=== PATIENT | male | born 1935 | race Caucasian/White ===

== ENCOUNTER 2016-12-31 08:27 | Inpatient (IN) | payer OTHER ==
[~2016-12-31] VITALS: Ht 185.4 cm; Wt 103.4 kg
[~2016-12-31 08:27] MED LIST: ASPI-515 PO; ASPI-621 PO; ATOR-2 PO; CARV12.52 PO; CLOP75TA PO; CLOP75TA52 PO; ENAL20TA PO; GABA600T2 PO; GABA800T2 PO; LEVO750T26 PO; LISI-167 PO; LOVA40TA2 PO; METF10002 PO; NITR0.4T28 PO; TICA90TA PO; TRAM50TA2 PO; WARF6TAB7 PO; WARF7.5T6 PO
[2016-12-31] MEDS ORDERED: SODIUM CHLORIDE FLUSH 10ML SYR IVF ONE (09:00)
[2016-12-31 09:33] LABS: HEMATOCRIT 44.7 % (39.2-51.8); HEMOGLOBIN 14.8 g/dL (13.7-18.0); WHITE BLOOD COUNT 12.6 x10^3/uL (3.4-10)
[2016-12-31 09:46] LABS: ASPARTATE AMINO TRANSFERASE 22 U/L (15-37); BLOOD UREA NITROGEN 19 mg/dL (7-18)
[2016-12-31 09:52] LABS: IS PT STATUS REG ER OR PRE ER? YES
[2016-12-31 10:15] LABS: PATH.CAST-FLAG NOT PRESENT; SPERM-FLAG NOT PRESENT; SRC-FLAG NOT PRESENT; XTAL-FLAG NOT PRESENT; YLC-FLAG NOT PRESENT
[2016-12-31] MEDS ORDERED: OMNIPAQUE 350 MG/ML, 100ML BOTTLE ONE (10:33)
[2016-12-31] MEDS ORDERED: RIVA20TA PO (12:04)
[2016-12-31] MEDS ORDERED: SODIUM CHLORIDE 0.9% 1,000 ML IV SCH (12:31)
[2016-12-31] MEDS ORDERED: DOCUSATE 100 MG CAPSULE PO PRN (13:00)
[2016-12-31] MEDS ORDERED: KETOROLAC 30 MG/1 ML IVPush PRN (13:00)
[2016-12-31] MEDS ORDERED: OXYcodone IR 5MG TABLET PO PRN (13:00)
[2016-12-31] MEDS ORDERED: BISACODYL 10 MG SUPP PR PRN (13:00)
[2016-12-31] MEDS ORDERED: ONDANSETRON 2MG/ML, 2ML IVPush PRN (13:00)
[2016-12-31] MEDS ORDERED: POLYETHYLENE GLYCOL 17 GM PACKET PO PRN (13:00)
[2016-12-31] MEDS ORDERED: ONDANSETRON ODT 4 MG PO PRN (13:00)
[2016-12-31] MEDS: INSULIN ASPART 100 UNITS/ML, PEN SQ-INSULIN SCH ×3 (13:00→21:04)
[2016-12-31] MEDS ORDERED: HYDROmorphone 1 MG/ML, 1ML IV PRN (13:00)
[2016-12-31] MEDS ORDERED: NITROGLYCERIN 0.4 MG BOTTLE (25 TABS) SL PRN (13:00)
[2016-12-31 13:06] VITALS: BP 156/93
[2016-12-31 14:19] VITALS: BP 156/93
[2016-12-31] MEDS: GUAIFENESIN 200 MG TABLET PO SCH ×2 (15:15→21:04)
[2016-12-31] MEDS: GABAPENTIN 400 MG CAPSULE PO SCH ×2 (15:15→21:04)
[2016-12-31] MEDS: METHOCARBAMOL 500 MG TABLET PO SCH ×2 (15:16→21:04)
[2016-12-31] MEDS: CETIRIZINE 10 MG TABLET PO SCH (15:39)
[2016-12-31] MEDS ORDERED: MAGNESIUM SULFATE PMX 4GM/100M 100 ML IV ONE (16:00)
[2016-12-31] MEDS ORDERED: GADOBUTROL 10 MMOL/10 ML PFS ONE (17:55)
[2016-12-31 18:55] VITALS: BP 130/75
[2016-12-31] MEDS: FLUTICASONE NASAL SPRAY 16GM NAS SCH (21:00)
[2016-12-31] MEDS: SODIUM CHLORIDE NASAL SPRAY 45ML BOTTLE NAS SCH (21:00)
[2016-12-31] MEDS ORDERED: ATORVASTATIN 80 MG TABLET PO SCH (21:00)
[2016-12-31] MEDS: CARVEDILOL 6.25 MG TABLET PO SCH (21:04)
[2017-01-01 02:45] VITALS: BP 149/74
[2017-01-01] MEDS: GABAPENTIN 400 MG CAPSULE PO SCH ×2 (05:51→13:27)
[2017-01-01] MEDS: GUAIFENESIN 200 MG TABLET PO SCH ×2 (05:51→13:26)
[2017-01-01] MEDS: METHOCARBAMOL 500 MG TABLET PO SCH ×2 (05:51→13:26)
[2017-01-01 07:14] VITALS: BP 177/81
[2017-01-01] MEDS: INSULIN ASPART 100 UNITS/ML, PEN SQ-INSULIN SCH ×2 (08:37→13:27)
[2017-01-01] MEDS: FLUTICASONE NASAL SPRAY 16GM NAS SCH (08:38)
[2017-01-01] MEDS: CETIRIZINE 10 MG TABLET PO SCH (08:38)
[2017-01-01] MEDS: CARVEDILOL 6.25 MG TABLET PO SCH (08:38)
[2017-01-01] MEDS: SODIUM CHLORIDE NASAL SPRAY 45ML BOTTLE NAS SCH (08:39)
[2017-01-01 08:40] LABS: ASPARTATE AMINO TRANSFERASE 28 U/L (15-37); BLOOD UREA NITROGEN 17 mg/dL (7-18)
[2017-01-01 08:50] LABS: HEMATOCRIT 46.8 % (39.2-51.8); HEMOGLOBIN 15.6 g/dL (13.7-18.0); WHITE BLOOD COUNT 12.4 x10^3/uL (3.4-10)
[2017-01-01] MEDS ORDERED: LISINOPRIL 20 MG TABLET PO SCH (09:00)
[2017-01-01] MEDS ORDERED: RIVAROXABAN 20 MG TABLET PO SCH (09:00)
[2017-01-01] MEDS ORDERED: ASPIRIN 81 MG TABLET EC PO SCH (09:00)
[2017-01-01 13:20] VITALS: BP 151/80
== END 2017-01-01 16:54 | disposition left against medical advice (07) | DRG 552 ==
LOC: ED 11:26 → EDIP 11:28 → 4WST 13:13
PROVIDERS: ADMIT Internal Medicine; ATTEND Internal Medicine
DX: M51.34 Other intervertebral disc degeneration, thoracic region (principal); I27.82 Chronic pulmonary embolism; E11.40 Type 2 diabetes mellitus with diabetic neuropathy, unspecified; I11.0 Hypertensive heart disease with heart failure; I50.9 Heart failure, unspecified; J98.11 Atelectasis; E78.5 Hyperlipidemia, unspecified; D72.829 Elevated white blood cell count, unspecified; I25.10 Atherosclerotic heart disease of native coronary artery without angina pectoris; I25.2 Old myocardial infarction; I25.5 Ischemic cardiomyopathy; I44.7 Left bundle-branch block, unspecified; K80.20 Calculus of gallbladder without cholecystitis without obstruction; G89.29 Other chronic pain; Z66 Do not resuscitate; Z79.01 Long term (current) use of anticoagulants; Z86.711 Personal history of pulmonary embolism; Z86.718 Personal history of other venous thrombosis and embolism; Z86.73 Personal history of transient ischemic attack (TIA), and cerebral infarction without residual deficits; Z87.891 Personal history of nicotine dependence; Z95.2 Presence of prosthetic heart valve; Z95.5 Presence of coronary angioplasty implant and graft; Z88.0 Allergy status to penicillin; Z83.3 Family history of diabetes mellitus; M43.22 Fusion of spine, cervical region
CPT/HCPCS: 36415; 71010; 71275; 72157; 72158; 80053; 81001; 82962; 83036; 83605; 83735; 83880; 84145; 84443; 84484; 85025; 85379; 87040; 93005; A9585; C8929; J1815; Q9967; J3475; J7030

== ENCOUNTER 2017-09-05 10:26 | Emergency (ER) | payer OTHER ==
[~2017-09-05] VITALS: Ht 185.4 cm; Wt 107.0 kg
[~2017-09-05 10:26] MED LIST changes: +AZIT500T5 PO; +ENOX100S4 SQ; +RIVA20TA PO; +WARF5TAB PO-COUM
[2017-09-05 10:28] VITALS: BP 95/68
[2017-09-05] MEDS ORDERED: MICROFIBRILLAR COLLAGEN 0.5GM/PACK TP ONE (11:30)
[2017-09-05] MEDS ORDERED: MICROFIBRILLAR COLLAGEN 1 GM TP ONE (11:35)
[2017-09-05 11:48] LABS: BASOPHILS # (AUTO) 0.03 x10^3/uL (0-0.1); BASOPHILS % (AUTO) 0 % (0-1); EOSINOPHILS # (AUTO) 0.16 x10^3/uL (0-0.4); EOSINOPHILS % (AUTO) 2 % (1-7); LYMPHOCYTES # (AUTO) 0.92 x10^3/uL (1-3.4); LYMPHOCYTES % (AUTO) 10 % (22-44); MD NO; MEAN CORPUSCULAR HEMOGLOBIN 30.6 pg (27.5-34.5); MEAN CORPUSCULAR HGB CONC 32.8 g/dL (33.2-36.2); MEAN PLATELET VOLUME 9.6 fL (7.4-10.4); MONOCYTES # (AUTO) 0.64 x10^3/uL (0.2-0.8); MONOCYTES % (AUTO) 7 % (2-9); NEUTROPHILS % (AUTO) 82 % (42-75); PLATELET COUNT 218 x10^3/uL (130-400); RED BLOOD COUNT 3.81 x10^6/uL (4.38-5.82); RED CELL DISTRIBUTION WIDTH 13.4 % (9.4-14.8)
[2017-09-05 11:54] LABS: INTERNATIONAL NORMALIZED RATIO 1.07 (0.93-1.1)
== END 2017-09-05 12:24 | disposition home or self-care (01) ==
LOC: ED 11:47
DX: S80.212A Abrasion, left knee, initial encounter (principal); S80.211A Abrasion, right knee, initial encounter; E11.9 Type 2 diabetes mellitus without complications; I25.10 Atherosclerotic heart disease of native coronary artery without angina pectoris; Z79.01 Long term (current) use of anticoagulants; Z86.718 Personal history of other venous thrombosis and embolism; Z87.891 Personal history of nicotine dependence; D62 Acute posthemorrhagic anemia; I25.2 Old myocardial infarction; Z86.73 Personal history of transient ischemic attack (TIA), and cerebral infarction without residual deficits; X58.XXXA Exposure to other specified factors, initial encounter; Y93.89 Activity, other specified; Y99.8 Other external cause status; Y92.89 Other specified places as the place of occurrence of the external cause
CPT/HCPCS: 36415; 85025; 85610; 85730; 99284

== ENCOUNTER → 2017-12-28 | Outpatient (CLI) | payer OTHER ==
[~2017-12-28] MED LIST changes: +WARF6TAB47 PO; -WARF6TAB7 PO; +WARF7.5T46 PO; -WARF7.5T6 PO
== END | disposition home or self-care (01) ==
LOC: CFH 13:51
PROVIDERS: ATTEND Internal Medicine Cardiovascular Disease
DX: I11.9 Hypertensive heart disease without heart failure (principal); I34.8 Other nonrheumatic mitral valve disorders; I25.10 Atherosclerotic heart disease of native coronary artery without angina pectoris; I21.3 ST elevation (STEMI) myocardial infarction of unspecified site; I63.9 Cerebral infarction, unspecified; E11.9 Type 2 diabetes mellitus without complications; E78.5 Hyperlipidemia, unspecified; Z95.2 Presence of prosthetic heart valve
CPT/HCPCS: 93306